=== PATIENT | female | born 2000 | race Hispanic/Latino ===

== ENCOUNTER 2019-06-24 09:22 | Outpatient (CLI) | payer MEDICAID ==
--- NOTE | 2019-06-24 10:21 | ULT ---
EXAM: Transabdominal and transvaginal pelvic ultrasound with Doppler PROVIDED CLINICAL HISTORY: Pelvic pain COMPARISON: None FINDINGS: The uterus measures approximately 7.3 x 3.7 x 4.4 cm and demonstrates a normal sonographic appearance . Uterine endometrial thickness is approximately 7 mm. Right ovary measures approximately 3.1 x 2.3 x 2.2 cm and demonstrates multiple follicles. Left ovary measures approximately 2.7 x 1.8 x 2.1 cm anddemonstrates a normal sonographic appearance. Grayscale and color Doppler sonography with spectral analysis of the ovarian waveforms demonstrates n ormal flow bilaterally. There is no evidence for significant free pelvic fluid. IMPRESSION: Unremarkable pelvic ultrasound.
== END 2019-06-24 09:23 | disposition home or self-care (01) ==
LOC: BICULT 09:22
PROVIDERS: ATTEND Nurse Practitioner Family
DX: R10.2 Pelvic and perineal pain (principal)
CPT/HCPCS: 76856

== ENCOUNTER 2020-06-28 14:36 | Outpatient (CLI) | payer MEDICAID | END 2020-06-28 14:37 | disposition home or self-care (01) | LOC: BICULT 14:36 | PROVIDERS: ATTEND Nurse Practitioner | DX: N64.4 Mastodynia (principal) ==